=== PATIENT | female | born 1975 | race African-American/Black ===

== ENCOUNTER 2018-11-03 19:31 | Inpatient (IN) | payer OTHER ==
[~2018-11-03] VITALS: Ht 167.6 cm; Wt 66.5 kg
[2018-11-03 19:36] VITALS: BP 136/100
[2018-11-03 20:29] LABS: ANION GAP 19 mmol/L (7-16); BUN 7 mg/dL (7-18); CALCIUM 8.6 mg/dL (8.5-10.1); CHLORIDE 102 mmol/L (98-107); CO2 19 mmol/L (21-32); CREATININE 0.8 mg/dL (0.6-1.0); GLUCOSE 83 mg/dL (74-106); POTASSIUM 3.8 mmol/L (3.5-5.1); SODIUM 140 mmol/L (136-145)
[2018-11-03 20:33] LABS: SALICYLATE 3.6 mg/dL (2.8-20.0); SGOT 41 U/L (15-37); SGPT 25 U/L (30-65); TOTAL BILIRUBIN 0.5 mg/dL (<0.1-1.0); TOTAL PROTEIN 7.6 g/dL (6.4-8.2)
[2018-11-03 21:03] LABS: URINE BILIRUBIN NEGATIVE (Negative); URINE BLOOD 1+ (Negative); URINE CLARITY CLEAR; URINE COLOR YELLOW; URINE GLUCOSE-RANDOM* NEGATIVE (Negative); URINE KETONES NEGATIVE (Negative); URINE LEUKOCYTES-REFLEX NEGATIVE (Negative); URINE NITRITE-REFLEX NEGATIVE (Negative); URINE PROTEIN (DIPSTICK) NEGATIVE (Negative); URINE SPECIFIC GRAVITY <= 1.005 (1.005-1.035); URINE UROBILINOGEN 0.2 E.U./dl (0.2-1.0)
[2018-11-03 21:11] LABS: AMP/METHAMP Negative (Negative); BARBITURATES Negative (Negative); BENZODIAZEPINES Negative (Negative); COCAINE Negative (Negative); METHADONE Negative (Negative); OPIATES Negative (Negative); PCP Negative (Negative)
[2018-11-03 21:13] LABS: CASTS None Seen /LPF (None Seen); CRYSTALS None Seen /LPF (None Seen); SQUAMOUS 0-3 Few /LPF (0-3)
[2018-11-03 21:14] LABS: URINE RBC 0-2 Rare /HPF (0-2); URINE WBC-REFLEX 0-5 Rare /HPF (0-5)
[2018-11-04 04:31] LABS: ABSOLUTE NEUTROPHILS 1.9 thou/uL (1.4-8.2); BASOPHILS 0.7 % (0.0-2.0); EOSINOPHILS 1.1 % (0.0-3.0); HEMATOCRIT 39.1 % (37.0-47.0); HEMOGLOBIN 13.5 gm/dL (12.0-15.0); LYMPHOCYTES 50.5 % (24.0-44.0); MCH 29.9 pg (26.0-34.0); MCHC 34.6 g/dL (28.0-37.0); MCV 86.4 fL (80.0-100.0); MONOCYTES 10.3 % (1.0-8.0); PLATELET COUNT 378 thou/uL (150-400); POLYS 37.4 % (36.0-66.0); RBC 4.52 mil/uL (4.20-5.00); RDW 16.4 % (10.5-14.5); WBC 5.1 thou/uL (4.0-11.0)
[2018-11-04] MEDS ORDERED: LISINOPRIL20 MG PO (08:14)
[2018-11-04] MEDS ORDERED: ATIVAN1 MG PO (08:18)
[2018-11-04] MEDS ORDERED: KEPPRA 500 MG500 M1 PO (08:18)
--- NOTE | 2018-11-04 18:31 | NUR ---
CALL TO [facility]ATCH, [facility]LW[facility], ARRANGING TRANSPORT AT THIS TIME
[2018-11-04 21:30] LABS: ANION GAP 16 mmol/L (7-16); BUN 9 mg/dL (7-18); CHLORIDE 97 mmol/L (98-107); CO2 20 mmol/L (21-32); CREATININE 0.9 mg/dL (0.6-1.0); GLUCOSE 165 mg/dL (74-106); POTASSIUM 4.1 mmol/L (3.5-5.1); SODIUM 133 mmol/L (136-145)
[2018-11-04 21:36] LABS: ALBUMIN 3.7 g/dL (3.4-5.0); PHOSPHORUS < 0.1 mg/dL (2.5-4.9); SGOT 32 U/L (15-37); SGPT 26 U/L (30-65); TOTAL BILIRUBIN 0.7 mg/dL (<0.1-1.0); TOTAL PROTEIN 7.2 g/dL (6.4-8.2)
[2018-11-04 21:52] LABS: MAGNESIUM 2.9 mg/dL (1.8-2.4)
[2018-11-04 22:00] LABS: FOLIC ACID 32.3 ng/mL (8.6-58.9)
[2018-11-04 22:02] LABS: GGTP 100 U/L (5-55)
[2018-11-04 22:53] VITALS: BP 137/100
--- NOTE | 2018-11-04 22:59 | NUR ---
PT ARRIVED TO UNIT AT 2245 VIA ED STRETCHER. PT ORIENTED TO SURROUNDING. APPEARS DROWSY BUT FOLLOWING DIRECTION. ATTACHED TO TELEMETRY. SEIZURE PRECAUTIONS IMPLEMENTED. WILL ADMIT PT.
[2018-11-04 23:00] VITALS: BP 128/95
[2018-11-05] VITALS (22 sets, daily range): BP systolic 112–153; BP diastolic 78–110
[2018-11-05] MEDS ORDERED: KEPPRA1000 MG PO (01:47)
[2018-11-05] MEDS ORDERED: CARBAMAZEPINE200 M5 PO (01:48)
--- NOTE | 2018-11-05 05:01 | NUR ---
PT CURRENTLY RESTING, APPEARS TO BE SLEEPING. PT SR W/PVCs. PT CIWA ASSESSMENTS HAVE BEEN SCORE OF 5. PT REMAINS CONFUSED. PT CONTINUES ON RA. TOLERATING MAINTENANCE AND RECEIVING SODIUM PHOS REPLACEMENT. PT HAD T MAX 100.5 AND LAST O400 CHECK NORMAL NOW AT 98.9.
[2018-11-05 07:43] LABS: CALCIUM 7.6 mg/dL (8.5-10.1); CREATININE 0.7 mg/dL (0.6-1.0); POTASSIUM 3.2 mmol/L (3.5-5.1)
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
[2018-11-05 15:07] LABS: CREATININE 0.8 mg/dL (0.6-1.0); POTASSIUM 3.5 mmol/L (3.5-5.1)
--- NOTE | 2018-11-05 16:37 | NUR ---
Patient assessments and vital signs as documented. She is oriented this evening. She denies pain at this time. She has been calm and resting today. Patient denies suicidal ideation. Nurse to continue to monitor patient status.
--- NOTE | 2018-11-05 23:52 | NUR ---
ASSUMED CARE OF PT. AT 2245 FROM [facility]. PT. CURRENTLY RESTING IN BED. COMPLAINS OF HEADACHE AND WANTS SOMETHING TO EAT. ICE CREAM GIVEN, PT. PREVIOUSLY GIVEN MEDICATION FOR HEADACHE. WILL CONTINUE TO MONITOR.
[2018-11-06] VITALS (11 sets, daily range): BP systolic 126–149; BP diastolic 80–115
[2018-11-06 02:08] LABS: GLYCOHEMOGLOBIN (HGB A1C) 4.7 % (4.8-5.6)
[2018-11-06 05:24] LABS: HEMATOCRIT 35.6 % (37.0-47.0); HEMOGLOBIN 12.3 gm/dL (12.0-15.0); MCH 30.2 pg (26.0-34.0); MCHC 34.7 g/dL (28.0-37.0); RBC 4.09 mil/uL (4.20-5.00); RDW 15.6 % (10.5-14.5); WBC 6.6 thou/uL (4.0-11.0)
[2018-11-06 05:31] LABS: CALCIUM 8.2 mg/dL (8.5-10.1); CREATININE 0.7 mg/dL (0.6-1.0); MAGNESIUM 2.1 mg/dL (1.8-2.4); POTASSIUM 3.5 mmol/L (3.5-5.1)
--- NOTE | 2018-11-06 12:31 | NUR ---
Following for d/c planning needs. Received d/c order from physician. Per psychiatrist, pt will need inpatient psych. Reviewed chart and spoke with nurse and pt. Pt is agreeable with placement and realized she needs help. She said she has not been to inpatient psych in the past. Called [facility] and they have no beds available at this time. Called [facility] and they do not have beds available. Called [facility] and left message. Called [facility] and faxed referral. Called [facility] and fax referral. Will await return call re: bed availability and acceptance.
--- NOTE | 2018-11-06 13:13 | NUR ---
BEDSIDE EEG IN PROGRESS
--- NOTE | 2018-11-06 18:10 | NUR ---
PATIENT DISCHARGED TO [facility] ACCOMPANIED BY LOAD CHECKER. PATIENT ALERT, CALM AND VSS. PATIENT SIGNED EMTILA FORM.
--- NOTE | 2018-11-08 22:26 | HC ---
[facility] [place] [address] CONSULTATION Name: KARAN SHAFFER Room #: 240-P [facility] IN M.R.#: [id number] Admission: 11/04/18 ������������������ Attend Phys: Sherley Welch MD Discharge: 11/06/18 ������������������ Date of : 71 Report #: [id number] THIS REPORT FOR: //name// CC: NO PCP Sherley Welch DATE OF SERVICE: 11/05/2018 HISTORY OF PRESENT ILLNESS: This is a 43-year-old female patient who was evaluated by me for seizure. The patient is a poor historian. It looks like the best I can tell she started having seizure in 2008, but the records indicate that it may have been even in 2003. She had a surgery done. I did not have any records from that surgery. She indicated that she was not drinking that much alcohol at that time and seizures were related to her what looks like hemorrhagic CVA. It is not clear how much seizures were controlled. She indicates she was on 2 seizures medication, but presently she is on Keppra. She was drinking a large amount of alcohol and there was some question of alcohol withdrawal and she was admitted here before she goes to the psychiatric facility. REVIEW OF SYSTEMS: Indicates she had a prior history of craniotomy, which was presumably secondary to hemorrhagic CVA. She has psychiatric problems. She was taking large amount of alcohol. There is some question that she was hallucinating at one time. There was a question of seizure activity, but is not certain that she had a seizure in the Emergency Room because the best I can tell, she just fell. A 14-point review of system was carried out. It looks like she has some suicidal ideation. She has a history of alcohol withdrawal. She has trouble with alcohol intoxication. She has a history of schizophrenia. Apparently, she has short-term memory loss. I do not know what the etiology of the patient's intracranial hemorrhage was. A 14-point review of systems was limited, but was mostly positive for above. She denies any eye, ENT, cardiac, respiratory, GI, , musculoskeletal, dermatological or hematological symptoms associated with present symptomatology. PAST MEDICAL HISTORY: Positive for seizures. FAMILY HISTORY: Negative for congenital epilepsy. SOCIAL HISTORY: She smokes as well as drink alcohol. PHYSICAL EXAMINATION: NEUROLOGIC: Indicate she is alert. She is responsive. Her memory is poor, but she does not know what month it is. Her fund of knowledge is poor. Her speech looks intact. Cranial nerve examination 2 through 12 was difficult. I cannot tell about any fundus or visual field. She moves all 4 extremities. Her position sense is intact. Her tone is symmetrical. There is no meningeal sign. [address] [address] CONSULTATION Name: KARAN SHAFFER Room #: [facility] IN M.R.#: [id number] Admission: 11/04/18 ������������������ Attend Phys: Sherley Welch MD Discharge: 11/06/18 ������������������ Date of : 71 Report #: [id number] CARDIAC: Examination appears unremarkable. RESPIRATORY: No respiratory difficulty or rhonchi was noticed on either side. Her pulses are palpable. GENERAL: She is moderately built individual who does not have any dysmorphic features of eyes, ears and face. She has no edema, cyanosis or jaundice. VITAL SIGNS: Blood pressure is 137/97, respiration is 17, pulse is 89 and temperature is 99. Temperature has gone somewhat higher. LABORATORY DATA: Her white count is 5.1. Her potassium is 3.5. Her magnesium is 2.9. She did have a CT scan of the head as well as a CT scan of the C-spine. CT scan of the head shows multiple problems, but they are all old. IMPRESSION: This patient appeared to have seizures. Seizure is probably because of encephalomalacia caused by prior intracranial bleed. They are probably aggravated by her alcohol intake. I discussed the situation with her. She is already on Keppra. We will try to find out what other second anticonvulsant she was on. We will try to start back her on that if we can find it. I will get an EEG done in this patient to look for any active seizure activity. If none is found, she mainly needs to go back to her neurologist in [place] and follow up with them. She should stop drinking alcohol. All of it was discussed with the patient in detail. Time spent 50 and about half of it counseling and coordinating her care. ��������������������������������������������� <ELECTRONICALLY SIGNED> ���������������������������������������� By: Porter Robertson MD ��������������������������������������������� 11/08/18 2226 [id number] Porter Robertson MD /nt
--- NOTE | 2018-11-08 22:27 | EEG ---
[facility] [place] [address] ELECTROENCEPHALOGRAM Name: KARAN SHAFFER Room #: 240-P [facility] IN M.R.#: [id number] ������������������ Admission: 11/04/18 ������������������ Attend Phys: Sherley Welch MD Discharge: 11/06/18 ������������������ Date of : 71 Report #: [id number] ����������������������������������������������������������������� [id number] THIS REPORT FOR: //name// CC: NO PCP Sherley Welch DATE OF SERVICE: 11/06/2018 This patient is being evaluated for the possibility of seizure. EEG was done by placing the electrode by standard 10-20 system of electrode placement. Both referential and sequential montages were used for recording. Background activity in this patient's EEG is about 11 Hz and 30 microvolt. The patient became drowsy and that is associated with bilateral slowing. Photic stimulation was unremarkable. No active epileptiform activity was noticed. IMPRESSION: This patient's electroencephalogram is within normal limits. No active epileptiform activity was noticed. ���������������������������������������� <ELECTRONICALLY SIGNED> ���������������������������������������� By: Porter Robertson MD ��������������������������������������������� 11/08/187 05 00 Porter Robertson MD /nt
== END 2018-11-06 17:55 | DRG 897 ==
LOC: ER 19:31 → ICU 11-04 21:06 → EROBS 11-04 21:06 → ICU 11-04 22:42
PROVIDERS: Emergency Medicine; Nurse Practitioner Family; ADMIT Internal Medicine
PROC: HZ2ZZZZ Detoxification Services for Substance Abuse Treatment (ICD-10-PCS; principal; 2018-11-04)
PROC: 0HQJXZZ Repair Left Upper Leg Skin, External Approach (ICD-10-PCS; principal; 2018-11-04)
DX: F10.129 Alcohol abuse with intoxication, unspecified (principal); R45.851 Suicidal ideations; E83.39 Other disorders of phosphorus metabolism; E87.8 Other disorders of electrolyte and fluid balance, not elsewhere classified; F39 Unspecified mood [affective] disorder; I69.911 Memory deficit following unspecified cerebrovascular disease; R56.9 Unspecified convulsions; S71.012A Laceration without foreign body, left hip, initial encounter; F31.9 Bipolar disorder, unspecified; I10 Essential (primary) hypertension; X58.XXXA Exposure to other specified factors, initial encounter; Y93.89 Activity, other specified; Z79.899 Other long term (current) drug therapy; Y92.89 Other specified places as the place of occurrence of the external cause; Y99.8 Other external cause status
CPT/HCPCS: 10203

== ENCOUNTER 2020-06-14 21:36 | Observation (INO) | payer OTHER ==
[~2020-06-14] VITALS: Ht 170.2 cm; Wt 71.2 kg
[2020-06-14 21:36] VITALS: BP 131/97
[~2020-06-14 21:36] MED LIST: ATIVAN1 MG PO; CARBAMAZEPINE200 M5 PO; KEPPRA 500 MG500 M1 PO; KEPPRA1000 MG PO; LISINOPRIL20 MG PO
[2020-06-14 22:53] LABS: URINE BILIRUBIN NEGATIVE (Negative); URINE BLOOD TRACE (Negative); URINE CLARITY CLEAR; URINE COLOR YELLOW; URINE GLUCOSE-RANDOM* NEGATIVE (Negative); URINE KETONES 1+ (Negative); URINE LEUKOCYTES-REFLEX NEGATIVE (Negative); URINE NITRITE-REFLEX NEGATIVE (Negative); URINE PROTEIN (DIPSTICK) NEGATIVE (Negative); URINE SPECIFIC GRAVITY 1.015 (1.005-1.035); URINE UROBILINOGEN 0.2 E.U./dl (0.2-1.0)
--- NOTE | 2020-06-14 23:03 | NUR ---
[place] [address] [phone]
[2020-06-14 23:32] LABS: ABSOLUTE NEUTROPHILS 7.9 thou/uL (1.4-8.2); BASOPHILS 0.6 % (0.0-2.0); HEMATOCRIT 35.9 % (37.0-47.0); LYMPHOCYTES 15.6 % (24.0-44.0); MCHC 33.4 g/dL (28.0-37.0); MONOCYTES 6.7 % (1.0-8.0); PLATELET COUNT 610 thou/uL (150-400); POLYS 77.1 % (36.0-66.0); RBC 4.27 mil/uL (4.20-5.00); RDW 13.9 % (10.5-14.5); WBC 10.3 thou/uL (4.0-11.0)
[2020-06-14 23:34] LABS: CALCIUM 8.6 mg/dL (8.5-10.1); POTASSIUM 3.2 mmol/L (3.5-5.1)
[2020-06-14 23:40] LABS: TOTAL BILIRUBIN 0.6 mg/dL (0.2-1.0); TOTAL PROTEIN 7.9 g/dL (6.4-8.2)
--- NOTE | 2020-06-15 07:16 | EKG ---
[address] [address] ELECTROCARDIOGRAM REPORT Name: KARAN SHAFFER Room #: 170-7 ADM IN M.R.#: [id number] Admission: 06/15/20 Attend Phys: Erick Rosen MD Discharge: Date of : 71 Report #: [id number] [facility] ED Test Date: 2020-06-14 Test Time: 22:14:55 Pat Name: KARAN SHAFFER Department: Room: 170 Gender: F Chief Psychologist: : 1975 Requested By: Mina Holly Order Number: [id number] : Cain Chaudhry Measurements Intervals [place] Rate: 97 P: 38 IA: 139 QRS: 61 QRSD: 85 T: 58 QT: 401 QTc: 510 Interpretive Statements Sinus rhythm Borderline prolonged QT interval Compared to ECG 02/28/2010 14:31:53 No significant changes Electronically Signed On 06-15-2020 7:16:40 MACHINE QUILT STUFFER by Cain hCaudhry [email or web address] <ELECTRONICALLY SIGNED> By: Cain Chaudhry MD, [facility] 06/15/20 0716 2214 2214 Cain Chaudhry MD, FACC /EPI
[2020-06-15 07:31] LABS: CREATININE 0.8 mg/dL (0.6-1.0)
[2020-06-15 07:51] LABS: POTASSIUM 4.3 mmol/L (3.5-5.1)
[2020-06-15 13:59] VITALS: BP 118/89
[2020-06-15 15:43] VITALS: BP 123/86
--- NOTE | 2020-06-15 15:58 | NUR ---
45-year-old female presents with a seizure after being transported via ground EMS. Patient reportedly hit her head and has neck pain therefore she underwent a CT head neck to rule out intracranial hemorrhage or neck fracture. These were read as negative. Patient was [place] [facility] [place] and was discharged. Per ED record at 2212 on 06-14-20 that patient was not waking up. Patient was admitted to the hospitalist and a consult placed with neurology. Patient remains in ED as of 06-15-20 at 1540 and documented as A&O x4 but continues to sleep but easily awakens. The patient has been admitted for recurrent seizure disorder and encephalopathy secondary to postictal state, reported left ankle fracture, anxiety/bipolar/schizophrenia, s/p stroke and craniotomy, short term memory loss, HTN and hx of Etoh abuse. The ED nursing note indicates point of contact as declan Dick at [phone]. Face sheet notes Sussy Luna at [phone]. Upon improvement in current status will need to confirm actual contact for patient via the patient. The patient was last here and discharged on 11/09/18 and per CM notes was then discharged to [facility] [place]. CM will continue to follow for discharge needs.
[2020-06-15 18:06] VITALS: BP 123/86
[2020-06-15 18:26] VITALS: BP 137/86
[2020-06-15 18:37] VITALS: BP 144/108
[2020-06-15] MEDS ORDERED: NORVASC 2.5 MG2.5 M1 PO (19:14)
[2020-06-15] MEDS ORDERED: HYDROCHLOROTH12.5 M1 PO (19:15)
[2020-06-15] MEDS ORDERED: SERTRALINE HCL100 MG PO (19:15)
[2020-06-15] MEDS ORDERED: HYDROXYZINE HCL25 M2 PO (19:16)
[2020-06-16 04:23] VITALS: BP 123/91
--- NOTE | 2020-06-16 07:23 | NUR ---
NO SEIZURES OVERNIGHT. AFEBRILE. BP ELEVATED, GAVE 0900 BP MEDS AT 0630 TO LOWER BP. PT HAS NO COMPLAINTS. CALL LIGHT WITHIN REACH.
[2020-06-16 07:46] VITALS: BP 148/108; BP 148/98
[2020-06-16 08:49] LABS: ABSOLUTE NEUTROPHILS 3.7 thou/uL (1.4-8.2); EOSINOPHILS 0.7 % (0.0-3.0); HEMATOCRIT 39.8 % (37.0-47.0); HEMOGLOBIN 12.9 gm/dL (12.0-15.0); LYMPHOCYTES 33.9 % (24.0-44.0); MCH 28.3 pg (26.0-34.0); MCHC 32.3 g/dL (28.0-37.0); MCV 87.4 fL (80.0-100.0); MONOCYTES 8.1 % (1.0-8.0); PLATELET COUNT 516 thou/uL (150-400); POLYS 56.3 % (36.0-66.0); RBC 4.55 mil/uL (4.20-5.00); RDW 14.2 % (10.5-14.5); WBC 6.6 thou/uL (4.0-11.0)
[2020-06-16 09:00] LABS: ALBUMIN 3.9 g/dL (3.4-5.0); CALCIUM 9.2 mg/dL (8.5-10.1); CREATININE 0.8 mg/dL (0.6-1.0); MAGNESIUM 2.5 mg/dL (1.8-2.4); POTASSIUM 3.4 mmol/L (3.5-5.1); TOTAL BILIRUBIN 0.6 mg/dL (0.2-1.0); TOTAL PROTEIN 7.9 g/dL (6.4-8.2)
--- NOTE | 2020-06-16 13:35 | NUR ---
spoke with patient over phone. She admits with COVID positive and seizures. She reports she lives with family. She is on disability. [employer] independent with adls and self care. She does not drive. She has family to assist. 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 She has health insurance and reports she can pay for her medications. Anticipate no dc needs from casemgt. Cont to follow. Tenative plan to discharge today however patient believes she may be here one more day.
[2020-06-16] MEDS ORDERED: KEPPRA 500 MG500 MG PO (14:52)
[2020-06-16 15:54] VITALS: BP 132/98
[2020-06-16 17:10] VITALS: BP 132/98
--- NOTE | 2020-06-16 18:11 | NUR ---
ASSUMED CRE OF PT A T0700. PT ALERT AND ORIENTED NO ACUTE DISTRESS. DIFFICULTY WITH MEMORY AND RECALLING WORDS. NO SEIZURE SYMPTOMS THROUGHOUT THE DAY. DISCHARGED HOME WITH MOTHER AND HOME HEALTH.
--- NOTE | 2020-06-19 21:06 | HC ---
[facility] [place] [address] CONSULTATION Name: KARAN SHAFFER Room #: [address] [place] [address] Caleb Nguyen#: [id number] Admission: 06/15/20 Attend Phys: Christo Foley MD Discharge: 06/16/20 Date of : 71 Report #: [id number] THIS REPORT FOR: cc: MAUREEN - No family physician/PCP FAM - No family physician/PCP Porter Robertson MD ~ DATE OF SERVICE: 06/15/2020 HISTORY OF PRESENT ILLNESS: This is a 45-year-old female patient who was evaluated by me for seizure. The patient appeared to be confused and does not provide very good history. She does have a seizure disorder. She is on Keppra 1000 mg b.i.d. and Tegretol 200 mg b.i.d. Levels of the Tegretol is low therapeutic. She apparently had a hemorrhagic CVA in the past and that is the cause of her seizure. She is a poor historian. REVIEW OF SYSTEMS: Indicate that she is noncompliant and she does not follow up with [facility]. She had multiple seizures. She also was found to be COVID positive. Review of systems is also positive for schizophrenia, bipolar disorder, short-term memory loss, and alcohol abuse. She provides a pretty poor history in that regard. That was a relevant 14-point review of system. PAST MEDICAL HISTORY: Positive for seizure and multiple psychiatric problems. FAMILY HISTORY: Unremarkable. SOCIAL HISTORY: She does drink alcohol, but she is somewhat evasive how much alcohol she drinks. PHYSICAL EXAMINATION: Indicate she is alert. She is somewhat confused. She is somewhat impulsive, but she will follow commands when she was asked to intermittently. Cranial nerve examination was attempted looks grossly intact. She does have trouble with the leg, which she says at her baseline. Otherwise, neuromuscular examination is mostly noncontributory. There is no meningeal sign in this patient. Blood pressure is 144/108, respirations 18, temperature is 98.7, it was 99.3 when she came in. Cardiac examination is unremarkable. She does not appear to be in any marked respiratory difficulty. LABORATORY DATA: GFR is 93. CT scan was done, which showed old craniotomy, but nothing acute. IMPRESSION AND PLAN: This patient appeared to have breakthrough seizure. History is poor. It is possible that this patient's COVID decompensated her, but her compliance, also looks poor because she has not followed up with a neurologist. Presently, I will increase her Keppra to 1500 [place] [address] CONSULTATION Name: KARAN SHAFFER Room #: [address] [place] [address] Caleb Nguyen#: [id number] Admission: 06/15/20 Attend Phys: Christo Foley MD Discharge: 06/16/20 Date of : 71 Report #: [id number] see how she does. If she continued to have seizure, then we will adjust her Tegretol also. She needs to go back to her doctors at [facility], so they can consider other medication like Trileptal. I discussed as much as I could with her and we will try to discuss with the mother tomorrow. Thank you very much for this referral. <ELECTRONICALLY SIGNED> By: Porter Robertson MD 06/19/202105 51 01 Porter Robertson MD /nt
== END 2020-06-16 18:22 | disposition home or self-care (01) ==
LOC: ER 21:36 → 3W 06-15 00:57 → EROBS 06-15 00:57 → 3W 06-15 00:57 → EROBS 06-15 10:47 → 3W 06-15 18:26
PROVIDERS: Emergency Medicine; Nurse Practitioner Family; ADMIT Internal Medicine; ATTEND Internal Medicine
DX: U07.1 COVID-19 (principal); G40.802 Other epilepsy, not intractable, without status epilepticus; G93.40 Encephalopathy, unspecified; F31.9 Bipolar disorder, unspecified; F20.9 Schizophrenia, unspecified; I10 Essential (primary) hypertension; F41.9 Anxiety disorder, unspecified; R41.3 Other amnesia; Z86.73 Personal history of transient ischemic attack (TIA), and cerebral infarction without residual deficits; Z86.59 Personal history of other mental and behavioral disorders
CPT/HCPCS: 10879

== ENCOUNTER 2021-06-01 00:10 | Emergency (ER) | payer OTHER ==
[~2021-06-01] VITALS: Ht 172.7 cm; Wt 68.0 kg
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
[~2021-06-01 00:10] MED LIST changes: +HYDROCHLOROTH12.5 M1 PO; +HYDROXYZINE HCL25 M2 PO; +KEPPRA 500 MG500 MG PO; +NORVASC 2.5 MG2.5 M1 PO; +SERTRALINE HCL100 MG PO
[2021-06-01 06:26] VITALS: BP 147/100
== END 2021-06-01 06:28 | disposition home or self-care (01) ==
LOC: ER
DX: S16.1XXA Strain of muscle, fascia and tendon at neck level, initial encounter (principal); S00.83XA Contusion of other part of head, initial encounter; S09.90XA Unspecified injury of head, initial encounter; G62.9 Polyneuropathy, unspecified; F31.9 Bipolar disorder, unspecified; F10.10 Alcohol abuse, uncomplicated; I10 Essential (primary) hypertension; F41.9 Anxiety disorder, unspecified; Z86.73 Personal history of transient ischemic attack (TIA), and cerebral infarction without residual deficits; Z79.891 Long term (current) use of opiate analgesic; Z79.899 Other long term (current) drug therapy; Y04.2XXA Assault by strike against or bumped into by another person, initial encounter; Y93.89 Activity, other specified; Y92.89 Other specified places as the place of occurrence of the external cause; Y99.8 Other external cause status